=== PATIENT | female | born 1960 | race African-American/Black ===

== ENCOUNTER 2021-12-27 14:17 | Emergency (ER) | payer OTHER ==
[~2021-12-27] VITALS: Ht 177.8 cm; Wt 159.0 kg
[~2021-12-27 14:17] MED LIST: ATOR10TA69 PO; BENA-8 PO; ERTU15TA PO; GABA-529 PO; INSU300I SQ; LEVA0.6320 NEB; MONT5TAB24 PO; SEMA1PEN SQ; VENL150C52 PO
[2021-12-27] MEDS ORDERED: METHYLPREDNISOLONE SOD SUCC 125 MG/2 ML VIAL IV ONE (14:45)
[2021-12-27] MEDS ORDERED: SODIUM CHLORIDE 0.9% 1,000 ML IV ONE ×2 (14:45→15:30)
[2021-12-27] MEDS ORDERED: DIPHENHYDRAMINE 50MG/ML VIAL IV ONE (14:45)
[2021-12-27] MEDS ORDERED: EPINEPHRINE 1:1000 1 MG/ML AMP IM ONE (15:15)
[2021-12-27 15:19] LABS: BASOPHILS % 0.4 % (0.0-2.0); EOSINOPHILS % 0.9 % (0.0-5.0); HEMOGLOBIN. 16.1 g/dL (12.0-16.0); LYMPHOCYTES % 28.3 % (20.0-50.0); MEAN CORPUSCULAR VOLUME 88.4 fL (81.0-99.0); MEAN PLATELET VOLUME 8.3 fl (7.4-10.4); MONOCYTES % 4.2 % (2.0-8.0); NEUTROPHILS % 66.2 % (40.0-76.0); PLATELET 681 x1000/uL (130-400); RED BLOOD CELL COUNT 5.54 mill/uL (4.2-5.4); RED CELL DISTRIBUTION WIDTH 14.6 % (11.6-14.6)
[2021-12-27 15:21] LABS: INR 0.9; PROTHROMBIN TIME 10.2 sec (9.6-11.0)
[2021-12-27 15:33] LABS: CHLORIDE 105 mEq/L (98-107)
[2021-12-27] MEDS ORDERED: DIPH25CA83 MT (18:19)
[2021-12-27] MEDS ORDERED: P50 MT (18:19)
[2021-12-27 18:40] VITALS: BP 108/72
== END 2021-12-27 18:45 | disposition home or self-care (01) ==
LOC: ER 14:29
DX: T78.3XXA Angioneurotic edema, initial encounter (principal); I10 Essential (primary) hypertension; E11.9 Type 2 diabetes mellitus without complications; Z79.01 Long term (current) use of anticoagulants; Z79.4 Long term (current) use of insulin; Z88.0 Allergy status to penicillin
CPT/HCPCS: 36415; 71045; 80053; 84484; 85025; 85610; 93005; 96361; 96372; 96374; 96375; 99285; J1200; J2930; J3490; J7030